=== PATIENT | female | born 1995 | race Caucasian/White ===

== ENCOUNTER 2025-01-13 09:41 | Day surgery (SDC) | payer OTHER ==
[2025-01-07 16:18] VITALS: BMI 17.7
[2025-01-13 10:32] LABS: BHCG - Serum Negative (NEGATIVE); Pregs Control Background? CLEAR/WHITE (CLR/WHITE); Pregs Control Bar Appear? YES (CONTROL BAR)
[2025-01-13 10:52] LABS: %Lymphocytes 32.9 % (18.0-47.0); %Neutrophils 49.7 % (40.0-75.0); Hematocrit 38.0 % (34.9-44.5); Hemoglobin 13.1 g/dL (12.0-15.5); Mean Corpuscular Hemoglobin 35.0 pg (27.0-33.0); Mean Corpuscular Volume 101.6 fL (81.6-98.3); Platelet Count 231 10x3/uL (130-400); Red Blood Cell (RBC) Count 3.74 10x6/uL (3.90-5.03); White Blood Cell (WBC) Count 3.80 10x3/uL (3.5-10.5)
[2025-01-13 10:53] LABS: #Basophils 0.06 10x3/uL (0.0-0.2); #Eosinophils 0.16 10x3/uL (0.0-0.5); #Monocytes 0.43 10x3/uL (0.0-1.1); #Neutrophils 1.89 10x3/uL (1.5-8.4); %Basophils 1.6 % (0.0-2.0); %Eosinophils 4.2 % (0.0-6.0); %Monocytes 11.3 % (0.0-10.0)
[2025-01-13] MEDS ORDERED: PROPOFOL 20 ML ONE (11:08)
[2025-01-13] MEDS ORDERED: Ondansetron PF 4 MG/2 ML Vial ONE (11:08)
[2025-01-13] MEDS ORDERED: SUGAMMADEX SODIUM 200 MG/2 ML VIAL ONE (11:19)
[2025-01-13] MEDS ORDERED: CEFAZOLIN 2 GM VIAL ONE (12:12)
== END 2025-01-13 14:32 | disposition home or self-care (01) ==
LOC: CSHSDC 09:41
PROVIDERS: ATTEND Obstetrics & Gynecology
PROC: 0UPD8HZ Removal of Contraceptive Device from Uterus and Cervix, Via Natural or Artificial Opening Endoscopic (ICD-10-PCS; principal; 2025-01-13)
DX: T83.39XA Other mechanical complication of intrauterine contraceptive device, initial encounter (principal); F41.8 Other specified anxiety disorders; Z79.899 Other long term (current) drug therapy; Y83.1 Surgical operation with implant of artificial internal device as the cause of abnormal reaction of the patient, or of later complication, without mention of misadventure at the time of the procedure
CPT/HCPCS: 36415; 84703; 85025; 86850; 86900; 86901; J1100; J2704; J3010